=== PATIENT | female | born 1985 | race African-American/Black ===

== ENCOUNTER 2016-12-27 10:41 | Emergency (ER) | payer SELFPAY ==
[~2016-12-27] VITALS: Ht 170.2 cm; Wt 75.0 kg
[2016-12-27 10:43] VITALS: BP 162/98; PULSE 101; RESP 17; TEMP 98.2; O2SAT 99
--- NOTE | 2016-12-27 10:58 | PD ---
HPI . 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 Patient describes a sharp pain in her left pelvic area that comes and goes. She tells me that the pain is not always present and that it is occasionally there. Today it is somewhat there. She initially reported nausea to the triage team, however she does not have any nausea or vomiting. She denies any urinary or bowel changes. She tells me she has a clear discharge that has no odor. She denies any high risk sexual behaviors and admits to sex with one partner. PFSH Past Medical History Medical History: Denies Significant Hx Diminished Hearing: No Tetanus Vaccination: > 5 Years Influenza Vaccination: No ?: Not LMP: 10/16/16 : 5 Para: 1 Miscarriage: 3 : 1 Past Surgical History Section: Yes (X 1) Gynecologic Surgery: Yes ( X 1 ) Social History Alcohol Use: Yes (OCC) Tobacco Use: No Substance Use: No Allergies-Medications (Allergen,Severity, Reaction): Coded Allergies: No Known Allergies (Unverified , 12/27/16) Reported Meds & Prescriptions Reported Meds & Active Scripts Active No Active Prescriptions or Reported Medications Review of Systems General / Constitutional: No: Fever Eyes: No: Visual changes HENT: No: Headaches Cardiovascular: No: Chest Pain or Discomfort Respiratory: No: Shortness of Breath Gastrointestinal: No: Abdominal Pain Genitourinary: No: Dysuria Musculoskeletal: Positive: Pain (left pelvic pain) Skin: No Rash Neurologic: No: Weakness Psychiatric: No: Depression Endocrine: No: Polydipsia Hematologic/Lymphatic: No: Easy Bruising Physical Exam Narrative GENERAL: AAO x 3, no acute distress, Well-nourished, well-developed patient. SKIN: Warm and dry. No visible rashes or bruising. HEAD: Normocephalic and atraumatic. EYES: No scleral icterus. No injection or drainage. ENT: No nasal drainage noted. Mucous membranes pink. Airway patent. NECK: Supple, trachea midline. No JVD. CARDIOVASCULAR: Regular rate and rhythm without murmurs, gallops, or rubs. RESPIRATORY: Breath sounds equal bilaterally. No accessory muscle use. No rhonchi or rales. GASTROINTESTINAL: Abdomen soft, normoactive bowel sounds, tenderness to deep palpation in the left pelvic area. otherwise no pain. PELVIC: Anamaria LUCIANO present: + thick white discharge and cervical motion tenderness EXTREMITIES: No cyanosis or edema. BACK: No obvious deformity. No CVA tenderness. NEURO: CN II-12 intact, PSYCH: AAO x 3, normal affect. Data Data Last Documented VS Vital Signs Date Time Temp Pulse Resp B/P Pulse Ox O2 Delivery O2 Flow Rate FiO2 12/27/16 10:43 98.2 101 17 162/98 99 Orders Gc And Chlamydia Pcr (12/27/16 11:19) Wet Prep Profile (12/27/16 11:19) Urinalysis - C+S If Indicated (12/27/16 11:19) Labs Laboratory Tests Test 12/27/16 11:15 Urine Color YELLOW Urine Turbidity HAZY Urine pH 6.0 Urine Specific [place] 1.033 Urine Protein TRACE mg/dL Urine Glucose (UA) NEG mg/dL Urine Ketones NEG mg/dL Urine Occult Blood NEG Urine Nitrite NEG Urine Bilirubin NEG Urine Urobilinogen LESS THAN 2.0 MG/DL Urine Leukocyte Esterase NEG Urine RBC LESS THAN 1 /hpf Urine WBC 2 /hpf Urine Squamous Epithelial 8 /hpf Cells Urine Bacteria FEW /hpf Urine Mucus FEW /lpf Microscopic Urinalysis Comment CULT NOT INDICATED Clue Cells (Wet Prep) NONE SEEN Vaginal Trichomonas (Wet Prep) NONE SEEN Vaginal Yeast (Wet Prep) NONE SEEN MDM Medical Decision Making Medical Screen Exam Complete: Yes Emergency Medical Condition: Yes Medical Record Reviewed: Yes Differential Diagnosis Cervicitis,ovarian cyst, PID, Narrative Course 31-year-old female with negative urine , here with mild white discharge on pelvic exam and some pain with deep palpation to the left pelvic area. Thus far, not have any signs of urinary tract infection, yeast, bacterial vaginosis or trichomoniasis Discuss all the results with her and explained that chlamydia and gonorrhea take time to process. I discussed prophylactic treatment and she declined. She says she rather be notified tomorrow if positive. In regards to her pelvic pain, this could be related to an ovarian cyst vs. mittelschmerz versus other. I explained this to her and that it is not an acute emergency and this can be followed as an outpatient basis as it has been going on intermittently for the past 2 months. Patient is in agreement. She will follow up with her providers in [place]. Patient verbalized understanding of instructions, questions were answered, and thanked me for their care. I advised them if their condition worsens, please return to the nearest emergency room for further care. Diagnosis Primary Impression: Pelvic pain in female Patient Instructions: General Instructions Additional Instructions: Please return to emergency department if your symptoms return or worsen. Follow up with your primary care provider. You will need to establish and follow up with a beam builder helper. You can use Tylenol or Motrin as needed for aches and pain. Scripts No Active Prescriptions or Reported Meds Disposition: 01 DISCHARGE HOME Condition: Stable Jazmine Eli Dec 27, 2016 10:58
[2016-12-27 11:45] LABS: BACTERIA, URINE FEW /hpf; BLOOD, URINE NEG (NEG); COMMENT (UR) CULT NOT INDICATED; CULTURE IF INDICATED CULT NOT INDICATED; GLUCOSE,URINE NEG (NEG); KETONE, URINE NEG (NEG); MUCUS URINE FEW /lpf (OCC); NITRITE,URINE NEG (NEG); SQUAMOUS EPITHELIAL CELL URINE 8 /hpf (0-5); URINE COLOR YELLOW (YELLW/STRAW)
[2016-12-27 15:12] LABS: CHLAMYDIA PCR NOT DETECTED (NOT DETECT); NEISSERIA PCR NOT DETECTED (NOT DETECT)
== END 2016-12-27 12:35 | disposition home or self-care (01) ==
LOC: NEPD 10:41
DX: R10.2 Pelvic and perineal pain (principal)
CPT/HCPCS: 81001; 87210; 87491; 87591; 99284